=== PATIENT | male | born 1995 | race Two or more races ===

== ENCOUNTER 2019-04-05 17:34 | Emergency (ER) | payer SELFPAY ==
[~2019-04-05] VITALS: Ht 165.1 cm; Wt 75.0 kg
[2019-04-05] MEDS ORDERED: ONDANSETRON HCL 4MG/2ML INJ IV STA (22:19)
[2019-04-05] MEDS ORDERED: SODIUM CHLORIDE 0.9% 1,000 ML IV ONE (22:19)
[2019-04-05] MEDS ORDERED: LORAZEPAM 2MG/ML CPJ IV ONE (22:30)
[2019-04-05 23:07] LABS: BASOPHILS % 2.9 % (0.0-2.0); EOSINOPHILS % 0.3 % (0.0-5.0); HEMATOCRIT. 44.4 % (42.0-52.0); LYMPHOCYTES % 22.3 % (20.0-50.0); MEAN CORPUSCULAR HEMOGLOBIN 30.7 pg (28.0-32.0); MONOCYTES % 5.5 % (2.0-8.0); PLATELET 327 x1000/uL (130-400); RED BLOOD CELL COUNT 4.88 mill/uL (4.7-6.1); RED CELL DISTRIBUTION WIDTH 14.8 % (11.6-14.6)
[2019-04-05 23:13] LABS: CHLORIDE 101 mEq/L (98-107)
[2019-04-05 23:17] LABS: ETHANOL BLOOD 207 mg/dL
[2019-04-05 23:32] LABS: *AMPHETAMINES SCREEN URINE NEGATIVE (NEGATIVE); *BARBITURATES SCREEN URINE NEGATIVE (NEGATIVE); *BENZODIAZEPINES SCREEN URINE NEGATIVE (NEGATIVE); *COCAINE SCREEN URINE NEGATIVE (NEGATIVE); METHADONE URINE SCREEN NEGATIVE (NEGATIVE); OPIATES URINE SCREEN NEGATIVE (NEGATIVE); PHENCYCLIDINE URINE SCREEN NEGATIVE (NEGATIVE)
[2019-04-05 23:34] LABS: CANNABINOID URINE SCREEN NEGATIVE (NEGATIVE)
[2019-04-06] MEDS ORDERED: POTASSIUM CHLORIDE 20MEQ TABLET SR PO ONE (00:45)
[2019-04-06 01:32] VITALS: BP 124/74
== END 2019-04-06 01:50 | disposition home or self-care (01) ==
LOC: ER 17:34
DX: T51.0X1A Toxic effect of ethanol, accidental (unintentional), initial encounter (principal); T40.601A Poisoning by unspecified narcotics, accidental (unintentional), initial encounter; Y92.89 Other specified places as the place of occurrence of the external cause; G92 Toxic encephalopathy
CPT/HCPCS: 36415; 80053; 80305; 80320; 84484; 85025; 93005; 96374; 99284; J2405; J7030; G0480